=== PATIENT | male | born 1945 | race Two or more races ===

== ENCOUNTER 2017-03-15 09:44 | Emergency (ER) | payer MEDICARE, OTHER ==
[2017-03-15 09:50] VITALS: BMI 28.3
--- NOTE | 2017-03-15 10:24 | PDOC ---
History of Present Illness - General History Source: Patient Exam Limitations: No Limitations - History of Present Illness Initial Comments: 03/15/17 10:46 The patient is a 71 year old male, with a significant past medical history of CAD s/p CABG, HTN, HLD, gastric reflux and nose bleeds, who presents to the emergency department with a nose bleed since 4am. He states that he got a nose bleed at 4am this morning and went to [facility] to get treatment where they packed his left nostril. He came to this ED because he was dissatisfied with the treatment he received at [facility] and wanted to know why he was having these nose bleeds. He states that he went to [facility] 3 days ago prior to this last visit for a nose bleed and they packed his nostril. But he ended up pulling out the packing yesterday because as he was not aware this was to be done by an ENT. The patient denies chest pain, shortness of breath, headache and dizziness. Denies fever, chills, nausea, vomit, diarrhea and constipation. Allergies: None Past surgical history: Abdominal hernia, CABG (x3) Social history: No alcohol, tobacco or drug use reported PMD - Dr. Quirino Pichardo <Juma Adams - Last Filed: 03/15/17 10:46> <Dea See - Last Filed: 03/16/17 09:43> - General Chief Complaint: Nasal Bleeding Stated Complaint: NOSE BLEEDING Time Seen by Provider: 03/15/17 10:07 Past History <Juma Adams - Last Filed: 03/15/17 10:46> - Past Medical History Anemia: No Asthma: No Cancer: No Cardiac Disorders: Yes (CABG 07/17/15) CVA: No COPD: No CHF: No Dementia: No Diabetes: No GI Disorders: Yes (REFLUX) Disorders: No HTN: Yes Hypercholesterolemia: Yes Liver Disease: Yes (PAIN ON AND OFF) Suicide Attempt (Hx): No Seizures: No Thyroid Disease: No - Surgical History Abdominal Surgery: Yes (HERNIA) Appendectomy: No Cardiac Surgery: Yes (CABG X 3) Cholecystectomy: No Lung Surgery: No Neurologic Surgery: No Orthopedic Surgery: No - Psycho/Social/Smoking Cessation Hx Anxiety: No Suicidal Ideation: No Smoking Status: No Smoking History: Former smoker Have you smoked in the past 12 months: No Number of Cigarettes Smoked Daily: 0 If you are a former smoker, when did you quit?: 1989 Information on smoking cessation initiated: No Hx Alcohol Use: No Drug/Substance Use Hx: No Substance Use Type: Alcohol Hx Substance Use Treatment: No <EsaDea - Last Filed: 03/16/17 09:43> - Past Medical History Allergies/Adverse Reactions: Allergies Allergy/AdvReac Type Severity Reaction Status Date / Time No Known Drug Allergies Allergy Verified 03/15/17 09:50 Home Medications: Ambulatory Orders Aspirin 325 mg PO DAILY 02/26/14 Docusate Sodium [Colace -] 100 mg PO TID 07/29/15 Metoprolol Tartrate [Lopressor -] 25 mg PO Q12H 07/29/15 Mirtazapine [Remeron -] 7.5 mg PO DAILY #30 tablet 07/31/15 Oxycodone HCl/Acetaminophen [Percocet 5-325 mg Tablet] 1 - 2 tab PO Q4H PRN #60 tablet 07/31/15 Atorvastatin Ca [Lipitor] 40 mg PO HS 08/27/15 Colchicine [Colcrys] 0.6 mg PO DAILY 08/27/15 Furosemide [Lasix -] 40 mg PO DAILY 08/27/15 Ketoconazole 2% Cream [Nizoral 2% Cream -] 1 applic TP BID 08/27/15 Ketorolac Tromethamine 10 mg PO Q6H PRN 08/27/15 Lactulose 30 ml PO TID 08/27/15 Omeprazole 20 mg PO DAILY 08/27/15 Torsemide 20 mg PO DAILY 08/27/15 Valsartan 160 mg PO DAILY 08/27/15 Amoxicillin/Potassium Clav [Augmentin 875-125 Tablet] 1 each PO BID #10 tablet 03/15/17 Review of Systems - Review of Systems Able to Perform ROS?: Yes Comments:: 03/15/17 10:46 GENERAL/CONSTITUTIONAL: No fever or chills. No weakness. HEAD, EYES, EARS, NOSE AND THROAT: +Nose bleed. No change in vision. No ear pain or discharge. No sore throat. CARDIOVASCULAR: No chest pain or shortness of breath RESPIRATORY: No cough, wheezing, or hemoptysis. GASTROINTESTINAL: No nausea, vomiting, diarrhea or constipation. GENITOURINARY: No dysuria, frequency, or change in urination. MUSCULOSKELETAL: No joint or muscle swelling or pain. No neck or back pain. SKIN: No rash NEUROLOGIC: No headache, vertigo, loss of consciousness, or change in strength/ sensation. ENDOCRINE: No increased thirst. No abnormal weight change HEMATOLOGIC/LYMPHATIC: No anemia, easy bleeding, or history of blood clots. ALLERGIC/IMMUNOLOGIC: No hives or skin allergy. <Juma Adams - Last Filed: 03/15/17 10:46> *Physical Exam - Vital Signs Last Vital Signs Temp Pulse Resp BP Pulse Ox 97.8 F 103 H 143/73 98 03/15/17 09:46 03/15/17 09:46 03/15/17 09:46 03/15/17 09:46 - Physical Exam Comments: 03/15/17 10:46 GENERAL: Awake, alert, and fully oriented, in no acute distress ENT: Auricles normal inspection, hearing grossly normal, nares patent, oropharynx clear without exudates. Moist mucosa. Left sided nasal packing in place, no active bleeding. Packing infused with blood. <Juma Adams - Last Filed: 03/15/17 10:46> - Vital Signs Last Vital Signs Temp Pulse Resp BP Pulse Ox 97.8 F 103 H 143/73 98 03/15/17 09:46 03/15/17 09:46 03/15/17 09:46 03/15/17 09:46 <Dea See - Last Filed: 03/16/17 09:43> Medical Decision Making - Medical Decision Making Discussion with patient at bedside. He mainly presented to the ED because he was not satisfied with his care at [facility], and was unclear about future management (he stated he thought he was supposed to remove the packing in 4 hours). I clarified that it should stay in place for 3 days, and as such, I will not disturb it in the ED, as there is no bleeding through it. I placed him on augmentin for prevention of toxic shock. Gave him list of ENT providers for follow-up, so that he can obtain a timely appointment with a provider who accepts his insurance. After discussion, his concerns were addressed and he was comfortable with discharge. <Dea See - Last Filed: 03/16/17 09:43> *DC/Admit/Observation/Transfer - Attestations Scribe Attestion: 03/15/17 10:48 Documentation prepared by Juma Adams, acting as emergency medical technician for Dea See MD <Juma Adams - Last Filed: 03/15/17 10:46> - Discharge Dispostion Admit: No <Dea See - Last Filed: 03/16/17 09:43> Diagnosis at time of Disposition: Nasal bleeding - Discharge Dispostion Disposition: HOME Condition at time of disposition: Stable - Prescriptions Prescriptions: Amoxicillin/Potassium Clav [Augmentin 875-125 Tablet] 1 each PO BID #10 tablet - Referrals Referrals: Leonard Galeana MD [Staff Physician] - - Patient Instructions Printed Discharge Instructions: DI for Nosebleed Additional Instructions: No retire el dispositivo de la nariz. El seguimiento con un especialista de la nariz para que se retire en 3 nolasco. Print Language: SAO TOMEAN
[2017-03-15 11:07] VITALS: BP 137/84; PULSE 88; TEMP 97.9
== END 2017-03-15 11:01 | disposition home or self-care (01) ==
LOC: JER 09:44
DX: R04.0 Epistaxis (principal); K21.9 Gastro-esophageal reflux disease without esophagitis; I10 Essential (primary) hypertension; E78.00 Pure hypercholesterolemia, unspecified; K76.9 Liver disease, unspecified; Z87.891 Personal history of nicotine dependence; Z95.1 Presence of aortocoronary bypass graft
CPT/HCPCS: 99282-25

== ENCOUNTER 2017-04-01 11:45 | Observation (INO) | payer MEDICARE, OTHER ==
[2017-04-01 11:48] VITALS: BMI 28.3
--- NOTE | 2017-04-01 11:50 | PDOC ---
[id number]: No Limitations - History of Present Illness Initial Comments: 04/01/17 12:30 The patient is a 72-year-old man, with a significant past medical history of hypertension, hypercholesterolemia, coronary artery disease (recent cardiac catherization approximately 3-4 months ago), gastroesophageal reflux disease who presents to the emergency department via EMS for further evaluation of shortness of breath today. Upon ED arrival, patient was noted to have an oxygen saturation of 100% on room air, heart rate of 72 bpm, respiratory rate of 20 and a blood pressure of 161/73. Patient states that he underwent cardiac catherization approximately 3-4 months ago and ever since he has been short of breath. 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 He also reports that he has had two similar episodes in the past. This morning, he was extremely short of breath and EMS was activated. He also reports associated symptoms of an intermittent productive cough that sometimes is brown and at other times it is yellow in appearance. He denies leg swelling, but feels as if they are stiff. No other complaints. No fever, chills, chest pain, nausea, vomiting, diarrhea. Allergies: No Known Drug Allergies Past Surgical History: CABG. Hernia repair. Social History: Former smoker. No EtOH and recreational drug use. Primary Care Physician: Dr. Quirino Pichardo <Lolita Lancaster - Last Filed: 04/01/17 15:46> <Dea See - Last Filed: 04/02/17 11:16> - General Chief Complaint: Respiratory Stated Complaint: DIFFICULTY BREATHING Time Seen by Provider: 04/01/17 11:49 Past History <Lolita Lancaster - Last Filed: 04/01/17 15:46> - Past Medical History Anemia: No Asthma: No Cancer: No Cardiac Disorders: Yes (CABG 07/17/15) CVA: No COPD: No CHF: No Dementia: No Diabetes: No GI Disorders: Yes (REFLUX) Disorders: No HTN: Yes Hypercholesterolemia: Yes Liver Disease: Yes (PAIN ON AND OFF) Suicide Attempt (Hx): No Seizures: No Thyroid Disease: No - Surgical History Abdominal Surgery: Yes (HERNIA) Appendectomy: No Cardiac Surgery: Yes (CABG X 3) Cholecystectomy: No Lung Surgery: No Neurologic Surgery: No Orthopedic Surgery: No - Psycho/Social/Smoking Cessation Hx Anxiety: No Suicidal Ideation: No Smoking Status: No Smoking History: Former smoker Have you smoked in the past 12 months: No Number of Cigarettes Smoked Daily: 0 If you are a former smoker, when did you quit?: 1989 Information on smoking cessation initiated: No Hx Alcohol Use: No Drug/Substance Use Hx: No Substance Use Type: None Hx Substance Use Treatment: No <Dea See - Last Filed: 04/02/17 11:16> - Past Medical History Allergies/Adverse Reactions: Allergies Allergy/AdvReac Type Severity Reaction Status Date / Time No Known Drug Allergies Allergy Verified 04/01/17 19:39 Home Medications: Ambulatory Orders Aspirin 325 mg PO DAILY 02/26/14 Docusate Sodium [Colace -] 100 mg PO TID 07/29/15 Metoprolol Tartrate [Lopressor -] 25 mg PO Q12H 07/29/15 Mirtazapine [Remeron -] 7.5 mg PO DAILY #30 tablet 07/31/15 Oxycodone HCl/Acetaminophen [Percocet 5-325 mg Tablet] 1 - 2 tab PO Q4H PRN #60 tablet 07/31/15 Atorvastatin Ca [Lipitor] 40 mg PO HS 08/27/15 Colchicine [Colcrys] 0.6 mg PO DAILY 08/27/15 Furosemide [Lasix -] 40 mg PO DAILY 08/27/15 Ketoconazole 2% Cream [Nizoral 2% Cream -] 1 applic TP BID 08/27/15 Ketorolac Tromethamine 10 mg PO Q6H PRN 08/27/15 Lactulose 30 ml PO TID 08/27/15 Omeprazole 20 mg PO DAILY 08/27/15 Torsemide 20 mg PO DAILY 08/27/15 Valsartan 160 mg PO DAILY 08/27/15 Review of Systems - Review of Systems Able to Perform ROS?: Yes Comments:: 04/01/17 12:30 GENERAL/CONSTITUTIONAL: No fever or chills. No weakness. HEAD, EYES, EARS, NOSE AND THROAT: No change in vision. No ear pain or discharge. No sore throat. CARDIOVASCULAR: Yes: Shortness of breath. No chest pain. RESPIRATORY: Yes: +Cough. No wheezing, or hemoptysis. GASTROINTESTINAL: No nausea, vomiting, diarrhea or constipation. GENITOURINARY: No dysuria, frequency, or change in urination. MUSCULOSKELETAL: No joint or muscle swelling or pain. No neck or back pain. SKIN: No rash NEUROLOGIC: No headache, vertigo, loss of consciousness, or change in strength/ sensation. ENDOCRINE: No increased thirst. No abnormal weight change. HEMATOLOGIC/LYMPHATIC: No anemia, easy bleeding, or history of blood clots. ALLERGIC/IMMUNOLOGIC: No hives or skin allergy. <Lolita Lancaster - Last Filed: 04/01/17 15:46> *Physical Exam - Vital Signs Last Vital Signs Temp Pulse Resp BP Pulse Ox 98.2 F 72 20 161/73 100 04/01/17 11:46 04/01/17 11:46 04/01/17 11:46 04/01/17 11:46 04/01/17 11:46 - Physical Exam Comments: 04/01/17 12:30 GENERAL: Awake, alert, and fully oriented, in no acute distress HEAD: No signs of trauma EYES: PERRLA, EOMI, sclera anicteric, conjunctiva clear ENT: Auricles normal inspection, hearing grossly normal, nares patent, oropharynx clear without exudates. Moist mucosa NECK: Normal ROM, supple, no lymphadenopathy, JVD, or masses LUNGS: Mild tachypnea but otherwise, breath sounds equal, clear to auscultation bilaterally. No wheezes, and no crackles HEART: Regular rate and rhythm, normal S1 and S2, no murmurs, rubs or gallops ABDOMEN: Soft, nontender, normoactive bowel sounds. No guarding, no rebound. No masses EXTREMITIES: Normal range of motion, no edema. No clubbing or cyanosis. No cords, erythema, or tenderness NEUROLOGICAL: Cranial nerves II through XII grossly intact. Normal speech <Lolita Lancaster - Last Filed: 04/01/17 15:46> - Vital Signs Last Vital Signs Temp Pulse Resp BP Pulse Ox 98.2 F 72 20 161/73 100 04/01/17 11:46 04/01/17 11:46 04/01/17 11:46 04/01/17 11:46 04/01/17 11:46 <Dea See - Last Filed: 04/02/17 11:16> ED Treatment Course - LABORATORY CBC & Chemistry Diagram: 04/01/17 12:15 04/01/17 12:15 - ADDITIONAL ORDERS Additional order review: 04/01/17 12:15 RBC 3.70 L MCV 88.7 MCHC 33.4 RDW 14.0 MPV 7.7 D Neutrophils % 70.4 Lymphocytes % 20.6 Monocytes % 7.0 Eosinophils % 1.4 Basophils % 0.6 - RADIOLOGY Radiograph Interpretation: 04/01/17 14:30 EXAM: RAD/CHEST X-RAY PORTABLE IMPRESSION: Frontal view of the chest provided. Prior study is dated October 07, 2016. Cardiac silhouette is upper limits of normal in size. Sternotomy wires are noted. There is mild increased perihilar lung markings which may reflect mild congestive changes. There is elevation of the right hemidiaphragm. There are degenerative changes of the spine. <Lolita Lancaster - Last Filed: 04/01/17 15:46> - LABORATORY CBC & Chemistry Diagram: 04/01/17 12:15 04/01/17 12:15 <Dea See - Last Filed: 04/02/17 11:16> Medical Decision Making - Medical Decision Making 04/01/17 15:[address] Dea Thompson. 04/01/17 15:[address] Dea Thompson. 04/01/17 15:[address] Dea Thompson to her mobile phone. <Lolita Lancaster - Last Filed: 04/01/17 15:46> - Medical Decision Making Pt with significant cardiac history presents with SOB this morning, now resolved. D/w Dr. Thompson, will admit and obtain cardiology consultation. <Dea See - Last Filed: 04/02/17 11:16> *DC/Admit/Observation/Transfer - Attestations Scribe Attestion: 04/01/17 12:30 Documentation prepared by Lolita Lancaster, acting as medical information officer for Dea See MD. <Lolita Lancaster - Last Filed: 04/01/17 15:46> - Discharge Dispostion Admit: Yes <Dea See - Last Filed: 04/02/17 11:16> Diagnosis at time of Disposition: Shortness of breath - Discharge Dispostion Condition at time of disposition: Stable - Referrals
[2017-04-01 12:25] LABS: BASOPHIL 0.6 % (0-2.0); EOSINOPHIL 1.4 % (0-4.5); MCH 29.7 pg (25.7-33.7); MCHC 33.4 g/dl (32.0-35.9); MEAN CELL VOLUME 88.7 fl (80-96); MEAN PLT VOLUME 7.7 fl (7.5-11.1); NEUTROPHILS 70.4 % (42.8-82.8); PLATELET COUNT 189 K/MM3 (134-434); WHITE BLOOD COUNT 5.3 K/mm3 (4.0-10.0)
[2017-04-01 12:53] LABS: ALBUMIN 3.4 g/dl (3.4-5.0); ANION GAP 9 (8-16); CO2 26 mmol/L (21-32); COCKROFT - GAULT 64.14; CREATININE 1.1 mg/dL (0.7-1.3); GLUCOSE,RANDOM 101 mg/dL (74-106); SGOT/AST 20 U/L (15-37); SGPT/ALT 25 U/L (12-78)
[2017-04-01 12:57] LABS: ALK PHOS 96 U/L (45-117); BILIRUBIN,TOTAL 0.2 mg/dL (0.2-1.0); TOT PROT 6.6 g/dl (6.4-8.2); TROPONIN I < 0.02 ng/ml (0.00-0.05)
--- NOTE | 2017-04-02 09:21 | EKG ---
Test Reason : Blood Pressure : / mmHG Vent. 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 RATE HAS DECREASED BY 55 BPM T WAVE INVERSION NOW EVIDENT IN LATERAL LEADS Confirmed by VIOLETTE NG, LISA ([id number]) on 04/02/2017 9:21:10 AM Referred By: Confirmed By:LISA OAKES MD
[2017-04-02] MEDS ORDERED: TORSEMIDE 20 MG TABLET (FP) PO SCH (10:45)
[2017-04-02] MEDS ORDERED: FUROSEMIDE 40 MG TABLET (FP) PO SCH (10:45)
[2017-04-02] MEDS ORDERED: ASPIRIN 325 MG TABLET PO SCH (10:45)
[2017-04-02] MEDS ORDERED: VALSARTAN 160 MG TABLET (UD) PO SCH (11:00)
[2017-04-02] MEDS ORDERED: PANTOPRAZOLE 20 MG TABLET (FP) PO SCH (11:00)
[2017-04-02] MEDS ORDERED: METOPROLOL TARTRATE 25 MG TABLET (FP) PO SCH (11:00)
--- NOTE | 2017-04-02 11:27 | CON.CARD ---
Consult Consult Specialty:: cardiology - History of Present Illness History of Present Illness: The patient is a 72-year-old man, with a significant past medical history of hypertension, hypercholesterolemia, coronary artery disease (s/p CABG; cardiac catherization approximately 3-4 months ago), gastroesophageal reflux disease who presents to the emergency department via EMS for further evaluation of shortness of breath today. Upon ED arrival, patient was noted to have an oxygen saturation of 100% on room air, heart rate of 72 bpm, respiratory rate of 20 and a blood pressure of 161/73. Patient states that he underwent cardiac catherization approximately 3-4 months ago and ever since he has been short of breath. 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 He also reports that he has had two similar episodes in the past. This morning, he was extremely short of breath and EMS was activated. He also reports associated symptoms of an intermittent productive cough that sometimes is brown and at other times it is yellow in appearance. He denies leg swelling, but feels as if they are stiff. No other complaints. No fever, chills, chest pain, nausea, vomiting, diarrhea. Allergies: No Known Drug Allergies Past Surgical History: CABG. Hernia repair. Social History: Former smoker. No EtOH and recreational drug use. Primary Care Physician: Dr. Quirino Pichardo - Past Medical History Cardio/Vascular: Yes: CAD, HTN, Hyperlipdemia, [place] Pulmonary: Yes: Other (Elevated right hemidiaphragm) - Past Surgical History Past Surgical History: Yes: CABG - Alcohol/Substance Use Hx Alcohol Use: No - Smoking History Smoking history: Former smoker Have you smoked in the past 12 months: No Aproximately how many cigarettes per day: 0 If you are a former smoker, when did you quit?: 1989 - Social History Usual Living Arrangement: With Spouse ADL: Family Assistance History of Recent Travel: No Home Medications - Allergies Allergies/Adverse Reactions: Allergies Allergy/AdvReac Type Severity Reaction Status Date / Time No Known Drug Allergies Allergy Verified 04/01/17 19:39 - Home Medications Home Medications: Ambulatory Orders Aspirin 325 mg PO DAILY 02/26/14 Docusate Sodium [Colace -] 100 mg PO TID 07/29/15 Metoprolol Tartrate [Lopressor -] 25 mg PO Q12H 07/29/15 Mirtazapine [Remeron -] 7.5 mg PO DAILY #30 tablet 07/31/15 Oxycodone HCl/Acetaminophen [Percocet 5-325 mg Tablet] 1 - 2 tab PO Q4H PRN #60 tablet 07/31/15 Atorvastatin Ca [Lipitor] 40 mg PO HS 08/27/15 Colchicine [Colcrys] 0.6 mg PO DAILY 08/27/15 Furosemide [Lasix -] 40 mg PO DAILY 08/27/15 Ketoconazole 2% Cream [Nizoral 2% Cream -] 1 applic TP BID 08/27/15 Ketorolac Tromethamine 10 mg PO Q6H PRN 08/27/15 Lactulose 30 ml PO TID 08/27/15 Omeprazole 20 mg PO DAILY 08/27/15 Torsemide 20 mg PO DAILY 08/27/15 Valsartan 160 mg PO DAILY 08/27/15 Vital Signs: Vital Signs Temperature 98.2 F 04/02/17 08:00 Pulse Rate 74 04/02/17 08:00 Respiratory Rate 16 04/02/17 08:00 Blood Pressure 150/80 04/02/17 08:00 O2 Sat by Pulse Oximetry (%) 100 04/01/17 22:00 Problem List - Problems (1) Shortness of breath Code(s): R06.02 - SHORTNESS OF BREATH (2) CAD (coronary artery disease) Code(s): I25.10 - ATHSCL HEART DISEASE OF [place] CORONARY ARTERY W/O ANG PCTRS Qualifiers: Coronary Disease-Associated Artery/Lesion type: bypass graft Associated angina: with stable angina (3) Chest wall pain following surgery Assessment/Plan: Atypical chest pain (sharp; occurs "always" since CABG). Pt's chest pain is reproduced by palpation of chest wall or by moving left arm. 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 EKG: NSR; old IW changes; lateral T wave changes. TNI < 0.02; f/u 2nd TNI, and if remains normal, pt may be followed as outpatient. He would benefit from cardiac rehabilitation. Code(s): G89.12 - ACUTE POST-THORACOTOMY PAIN (4) Hypertension Assessment/Plan: on metoprolol and valsartan. Code(s): I10 - ESSENTIAL (PRIMARY) HYPERTENSION (5) Systolic CHF Assessment/Plan: mildly reduced LVEF by ECHO 2016. Continue metoprolol and valsartan. Code(s): I50.20 - UNSPECIFIED SYSTOLIC (CONGESTIVE) HEART FAILURE (6) Anxiety Code(s): F41.9 - ANXIETY DISORDER, UNSPECIFIED
[2017-04-02 12:38] LABS: TROPONIN I < 0.02 ng/ml (0.00-0.05)
[2017-04-02] MEDS ORDERED: DOCUSATE SODIUM 100 MG CAPSULE (FP) PO SCH (14:00)
[2017-04-02] MEDS ORDERED: PATIENT'S OWN MEDICATION (NON-FORMULARY) (Lactulose [Lactulose] 30 ML) PO SCH (14:00)
[2017-04-02 14:40] VITALS: TEMP 97.9
--- NOTE | 2017-04-02 16:37 | HP ---
Admitting History and Physical - Admission History of Present Illness: The patient is a 72-year-old man, with a significant past medical history of hypertension, hypercholesterolemia, coronary artery disease (recent cardiac catherization approximately 3-4 months ago), gastroesophageal reflux disease who presents to the emergency department via EMS for further evaluation of shortness of breath today. Upon ED arrival, patient was noted to have an oxygen saturation of 100% on room air, heart rate of 72 bpm, respiratory rate of 20 and a blood pressure of 161/73. Patient states that he underwent cardiac catherization approximately 3-4 months ago and ever since he has been short of breath. 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 He also reports that he has had two similar episodes in the past. This morning, he was extremely short of breath and EMS was activated. He also reports associated symptoms of an intermittent productive cough that sometimes is brown and at other times it is yellow in appearance. He denies leg swelling, but feels as if they are stiff. No other complaints. No fever, chills, chest pain, nausea, vomiting, diarrhea. - Past Medical History Cardiovascular: Yes: CAD, HTN, Hyperlipdemia, [place] Pulmonary: Yes: Other (Elevated right hemidiaphragm) - Past Surgical History Past Surgical History: Yes: CABG - Smoking History Smoking history: Former smoker Have you smoked in the past 12 months: No Aproximately how many cigarettes per day: 0 If you are a former smoker, when did you quit?: 1989 - Alcohol/Substance Use Hx Alcohol Use: No - Social History ADL: Family Assistance History of Recent Travel: No Home Medications - Allergies Allergies/Adverse Reactions: Allergies Allergy/AdvReac Type Severity Reaction Status Date / Time No Known Drug Allergies Allergy Verified 04/01/17 19:39 - Home Medications Home Medications: Ambulatory Orders Aspirin 325 mg PO DAILY 02/26/14 Docusate Sodium [Colace -] 100 mg PO TID 07/29/15 Metoprolol Tartrate [Lopressor -] 25 mg PO Q12H 07/29/15 Mirtazapine [Remeron -] 7.5 mg PO DAILY #30 tablet 07/31/15 Atorvastatin Ca [Lipitor] 40 mg PO HS 08/27/15 Furosemide [Lasix -] 40 mg PO DAILY 08/27/15 Ketoconazole 2% Cream [Nizoral 2% Cream -] 1 applic TP BID 08/27/15 Lactulose 30 ml PO TID 08/27/15 Omeprazole 20 mg PO DAILY 08/27/15 Torsemide 20 mg PO DAILY 08/27/15 Valsartan 160 mg PO DAILY 08/27/15 Family Disease History - Family Disease History Family History: Unremarkable Review of Systems - Review of Systems Constitutional: reports: No Symptoms Eyes: reports: No Symptoms HENT: reports: No Symptoms Neck: reports: No Symptoms Cardiovascular: reports: Chest Pain Respiratory: reports: No Symptoms Gastrointestinal: reports: No Symptoms Physical Examination Vital Signs: Vital Signs Temperature 97.9 F 04/02/17 14:00 Pulse Rate 62 04/02/17 14:00 Respiratory Rate 20 04/02/17 14:00 Blood Pressure 137/86 04/02/17 14:00 O2 Sat by Pulse Oximetry (%) 96 04/02/17 09:00 Constitutional: Yes: Calm Eyes: Yes: WNL HENT: Yes: WNL Neck: Yes: WNL, Supple Cardiovascular: Yes: WNL, Regular Rate and Rhythm Respiratory: Yes: WNL, Regular, CTA Bilaterally Gastrointestinal: Yes: WNL, Normal Bowel Sounds, Soft Musculoskeletal: Yes: WNL Extremities: Yes: WNL Edema: No Neurological: Yes: WNL, Alert, Oriented ...Motor Strength: WNL Problem List - Problems (1) Chest pain Assessment/Plan: Admit to tele Serial cpk/troponin to r/o ACS As pr cardio Code(s): R07.9 - CHEST PAIN, UNSPECIFIED (2) CAD (coronary artery disease) Code(s): I25.10 - ATHSCL HEART DISEASE OF [place] CORONARY ARTERY W/O ANG PCTRS Qualifiers: Coronary Disease-Associated Artery/Lesion type: bypass graft Associated angina: with stable angina (3) Hyperlipidemia Code(s): E78.5 - HYPERLIPIDEMIA, UNSPECIFIED (4) Systolic CHF Code(s): I50.20 - UNSPECIFIED SYSTOLIC (CONGESTIVE) HEART FAILURE
[2017-04-02 18:58] VITALS: BP 148/72; PULSE 56
[2017-04-02] MEDS ORDERED: ATORVASTATIN CA 40 MG TABLET (FP) PO SCH (22:00)
[2017-04-02] MEDS ORDERED: MIRTAZAPINE 15 MG TABLET (FP) PO SCH (22:00)
== END 2017-04-02 19:02 | disposition home or self-care (01) ==
LOC: JER 11:45 → JERBED 16:48 → J4W 20:22
PROVIDERS: ADMIT Internal Medicine; ATTEND Internal Medicine
DX: R06.02 Shortness of breath (principal); I25.10 Atherosclerotic heart disease of native coronary artery without angina pectoris; I25.2 Old myocardial infarction; I50.20 Unspecified systolic (congestive) heart failure; I10 Essential (primary) hypertension; G89.12 Acute post-thoracotomy pain; F41.9 Anxiety disorder, unspecified; K21.9 Gastro-esophageal reflux disease without esophagitis; E78.5 Hyperlipidemia, unspecified; Z95.1 Presence of aortocoronary bypass graft; Z87.891 Personal history of nicotine dependence; Z79.82 Long term (current) use of aspirin
CPT/HCPCS: 36415; 71010-TC; 80053; 82550; 83880; 84484; 85025; 93005; 93010; 99285-25; G0378

== ENCOUNTER 2019-02-17 09:06 | Emergency (ER) | payer MEDICARE, OTHER ==
[2019-02-17 09:20] VITALS: BP 153/58; PULSE 67; TEMP 97.5; BMI 30.9
--- NOTE | 2019-02-17 10:04 | PDOC ---
History of Present Illness - General Chief Complaint: Pain, Acute Stated Complaint: Bleeding from Anus Time Seen by Provider: 02/17/19 09:31 History Source: Patient Exam Limitations: No Limitations - History of Present Illness Initial Comments: 02/17/19 09:59 73 year old male with medical history of HTN, high cholesterol, hermorrhoids, surgical history of open heart surgery, catherization x 2 and hernia repair, presents for rectal pain. Patient states he has chronic constipation, using enemas sometimes two times daily. States he is taking stool softeners but still has a lot of constipation. Also reports that he feels his prostate might be the cause of his discomfort. Timing/Duration: reports: getting worse Quality: reports: moderate, cramping, fullness Abdominal Pain Onset Location: reports: other (rectal) Pain Radiation: reports: groin Activities at Onset: reports: none Treatment Prior to Arrive: improves with: analgesics, laxative, enema Aggravating Factors: improves with: Defecation Alleviating Factors: improves with: Defecation Past History - Travel Traveled outside of the country in the last 30 days: No Close contact w/someone who was outside of country & ill: No - Past Medical History Allergies/Adverse Reactions: Allergies Allergy/AdvReac Type Severity Reaction Status Date / Time No Known Drug Allergies Allergy Verified 02/17/19 09:16 Home Medications: Ambulatory Orders Aspirin 325 mg PO DAILY 02/26/14 Docusate Sodium [Colace -] 100 mg PO TID 07/29/15 Metoprolol Tartrate [Lopressor -] 25 mg PO Q12H 07/29/15 Mirtazapine [Remeron -] 7.5 mg PO DAILY #30 tablet 07/31/15 Atorvastatin Ca [Lipitor] 40 mg PO HS 08/27/15 Furosemide [Lasix -] 40 mg PO DAILY 08/27/15 Ketoconazole 2% Cream [Nizoral 2% Cream -] 1 applic TP BID 08/27/15 Lactulose 30 ml PO TID 08/27/15 Omeprazole 20 mg PO DAILY 08/27/15 Torsemide 20 mg PO DAILY 08/27/15 Valsartan 160 mg PO DAILY 08/27/15 Hydrocortisone Acetate [Anusol Hc Suppository -] 25 mg RC DAILY #14 supp.rect Anemia: No Asthma: No Cancer: No Cardiac Disorders: Yes (CABG 07/17/15) CVA: No COPD: No CHF: No Dementia: No Diabetes: No GI Disorders: Yes (REFLUX) Disorders: No HTN: Yes Hypercholesterolemia: Yes Liver Disease: Yes (PAIN ON AND OFF) Seizures: No Thyroid Disease: No - Surgical History Abdominal Surgery: Yes (HERNIA) Appendectomy: No Cardiac Surgery: Yes (CABG X 3) Cholecystectomy: No Lung Surgery: No Neurologic Surgery: No Orthopedic Surgery: No - Immunization History Immunization Up to Date: Yes - Suicide/Smoking/Psychosocial Hx Smoking Status: No Smoking History: Never smoked Have you smoked in the past 12 months: No Number of Cigarettes Smoked Daily: 0 If you are a former smoker, when did you quit?: 1989 Hx Alcohol Use: No Drug/Substance Use Hx: No Substance Use Type: None Hx Substance Use Treatment: No Abd/GI Specific PMHX - Complaint Specific PMHX Colitis: No Diverticulitis: No Gall Bladder Disease: No GERD: No Hepatitis: No Irritable Bowel Synd (IBS): No Pancreatitis: No GI Ulcer Disease: No Review of Systems - Review of Systems Able to Perform ROS?: Yes Is the patient limited Hungarian proficient: No Constitutional: No: Chills, Fever HEENTM: No: Ear Discharge, Nose Pain, Throat Swelling Respiratory: No: Orthopnea, Shortness of Breath, Wheezing Cardiac (ROS): No: Chest Pain, Edema ABD/GI: Yes: Abd. Pain w/ defecation, Constipated. No: Diarrhea, Vomiting : No: Burning, Dysuria, Incontinence Musculoskeletal: No: Gout, Joint Pain, Muscle Weakness Integumentary: No: Erythema, Flushing Neurological: No: Headache, Numbness, Tingling Psychiatric: No: Stressors Endocrine: No: Increased Urine *Physical Exam - Vital Signs Last Vital Signs Temp Pulse Resp BP Pulse Ox 97.5 F L 67 16 153/58 L 98 02/17/19 09:16 02/17/19 09:16 02/17/19 09:16 02/17/19 09:16 02/17/19 09:16 - Physical Exam General Appearance: Yes: Nourished, Appropriately Dressed HEENT: positive: TMs Normal, Pharynx Normal Neck: positive: Supple. negative: Lymphadenopathy (R), Lymphadenopathy (L) Respiratory/Chest: positive: Lungs Clear, Normal Breath Sounds Cardiovascular: positive: Regular Rhythm, Regular Rate Male Genitalia: positive: normal genitalia Rectal Exam: positive: normal rectal tone, hemorrhoids, other (irritation of skin around anus, + hemorrhoids externally, fullness felt internally, + enlarged prostate non tender) Moderate Sedation - Procedure Monitoring Vital Signs: Procedure Monitoring Vital Signs Temperature 97.5 F L 02/17/19 09:16 Pulse Rate 67 02/17/19 09:16 Respiratory Rate 16 02/17/19 09:16 Blood Pressure 153/58 L 02/17/19 09:16 O2 Sat by Pulse Oximetry (%) 98 02/17/19 09:16 Medical Decision Making - Medical Decision Making 02/17/19 10:04 73 year old male with medical history of HTN, high cholesterol, hermorrhoids, surgical history of open heart surgery, catherization x 2 and hernia repair, presents for rectal pain. Plan: annusol HC suppositories encouraged to not use enema as frequently discussed high fiber diet referred to urologist *DC/Admit/Observation/Transfer Diagnosis at time of Disposition: Rectal pain, chronic Constipation Qualifiers: Constipation type: unspecified constipation type Qualified Code(s): K59.00 - Constipation, unspecified - Discharge Dispostion Disposition: HOME Condition at time of disposition: Good Decision to Admit order: No - Prescriptions Prescriptions: Hydrocortisone Acetate [Anusol Hc Suppository -] 25 mg RC DAILY #14 supp.rect - Referrals Referrals: Shira Pichardo [Primary Care Provider] - 3 days () Don Kim MD [Staff Physician] - 3 days (to check prostate) - Patient Instructions Printed Discharge Instructions: DI for Constipation, Increased Dietary Fiber May Improve Constipation Conditions With Pelvic Hussein Additional Instructions: Drink plenty water Eat foods high in fiber Call urologist for follow up appointment to discuss issues with prostate Return for blood in stool or bleeding from retum Print Language: GUINEAN - Post Discharge Activity
== END 2019-02-17 10:11 | disposition home or self-care (01) ==
LOC: JERFT 09:06
DX: K62.89 Other specified diseases of anus and rectum (principal); K59.00 Constipation, unspecified; I25.10 Atherosclerotic heart disease of native coronary artery without angina pectoris; Z98.61 Coronary angioplasty status; I10 Essential (primary) hypertension; Z95.1 Presence of aortocoronary bypass graft; E78.00 Pure hypercholesterolemia, unspecified
CPT/HCPCS: 99281-25